=== PATIENT | female | born 1935 | race Caucasian/White ===

== ENCOUNTER → 2017-08-20 | Outpatient (CLI) | payer MEDICARE ==
[~2017-08-20] MED LIST: AUGMENTIN 875-1 EACH PO; BACTROBAN2% TP; CARVEDILOL 1212.5 MG PO; CARVEDILOL6.25 MG PO; COREG25 MG PO; KEFLEX500 M1 PO; NEXIUM40 MG; TEKTURNA150 MG; VALSARTAN AND H1 TA1 PO
--- NOTE | 2017-08-20 10:54 | RADIOLOGY REPORT PS360 ---
CHEST-PORTABLE HISTORY: PICC line placement STROKE/DYSPHAGIA ORDERING PHYSICIAN: Benigno Bello MD PATIENT AGE: 82 years COMPARISON: None available FINDINGS: Status post placement of a right upper extremity PICC line with the tip in good position in the region superior vena cava. Nasogastric present with the tip in region of the body the stomach. There are mild bibasilar atelectatic changes. Normal heart size. Degenerative changes in the shoulders. IMPRESSION: 1. Good placement of PICC line and nasogastric tube. 2. Mild bibasilar atelectasis
== END ==
LOC: COP 10:14
DX: R13.10 Dysphagia, unspecified (principal); R56.9 Unspecified convulsions
CPT/HCPCS: G0463